=== PATIENT | female | born 1990 | race Hispanic/Latino ===

== ENCOUNTER 2021-02-28 14:21 | Emergency (ER) | payer BC, MEDICAID, OTHER ==
[~2021-02-28] VITALS: Ht 149.9 cm; Wt 63.5 kg
[~2021-02-28 14:21] MED LIST: PREN-196 PO
[2021-02-28 14:31] VITALS: BP 142/72
[2021-02-28] MEDS ORDERED: KETOROLAC 30MG VIAL (30MG/ML) IV STA (14:43)
[2021-02-28] MEDS ORDERED: IBUP-2088 PO (16:04)
== END 2021-02-28 16:22 | disposition home or self-care (01) ==
LOC: EDH 14:58
DX: M54.2 Cervicalgia (principal); V49.49XA Driver injured in collision with other motor vehicles in traffic accident, initial encounter; Y93.89 Activity, other specified; Y92.89 Other specified places as the place of occurrence of the external cause; Y99.8 Other external cause status
CPT/HCPCS: 72040; 81025; 96374; 99284; J1885